=== PATIENT | male | born 1955 ===

== ENCOUNTER 2018-03-26 08:09 | Day surgery (SDC) | payer MEDICARE ==
[2018-01-19 15:48] VITALS: BMI 27.4
[2018-03-26] MEDS ORDERED: Lactated Ringer's 500 ML IV ONE (08:53)
[2018-03-26] MEDS ORDERED: Propofol 10 mg/ml Inj (20 ML) ONE (09:47)
[2018-03-26 10:25] VITALS: RESP 15; TEMP 97.8
[2018-03-26 10:43] VITALS: BP 112/72; PULSE 69; O2SAT 95
== END 2018-03-26 11:30 | disposition home or self-care (01) ==
LOC: H.ENDO 08:09
PROVIDERS: ATTEND Internal Medicine Gastroenterology
DX: Z12.11 Encounter for screening for malignant neoplasm of colon (principal); J45.909 Unspecified asthma, uncomplicated; E11.9 Type 2 diabetes mellitus without complications; I10 Essential (primary) hypertension; F41.9 Anxiety disorder, unspecified; G47.30 Sleep apnea, unspecified; K64.8 Other hemorrhoids
CPT/HCPCS: 43239; 45378; 82948; 88305; J2001; J2704; J7120